=== PATIENT | female | born 1970 | race Caucasian/White ===

== ENCOUNTER 2019-12-25 23:32 | Observation (INO) | payer OTHER, SELFPAY ==
--- NOTE | ~2019-12-25 | XR_ITS ---
EXAMINATION: XR hand RT min 3V INDICATION: Right third finger pain and swelling TECHNIQUE: Three views of the right hand are obtained. COMPARISON: None available FINDINGS: There is diffuse soft tissue swelling of the third finger. No fracture, dislocation, or sub luxation is identified. No radiopaque foreign body is seen. Mild osteoarthritis is noted in several i nterphalangeal joints. IMPRESSION: 1. Soft tissue swelling of the right third finger without evidence of underlying osseous abnormality or radiopaque foreign body. Reviewed, dictated and finalized at location A. SIDE [employer]CHANIC IMPRESSION: 1. Soft tissue swelling of the right third finger without evidence of underlyin g osseous abnormality or radiopaque foreign body.
[2019-12-25 23:37] VITALS: BP 135/112; PULSE 121; RESP 20; TEMP 37.5; O2SAT 99
[2019-12-26] VITALS (9 sets, daily range): BP systolic 108–128; BP diastolic 58–78; PULSE 62–88; RESP 18–20; TEMP 36.1–37.2; O2SAT 94–98; BMI 25.2
--- NOTE | 2019-12-26 00:15 | ED.EXTPRO ---
HPI - Extremity Problem General Chief complaint: Extremity Problem,Nontraumatic Stated complaint: Swelling right middle finger Time Seen by Provider: 12/25/19 23:55 Source: patient Mode of arrival: ambulatory Limitations: no limitations History of Present Illness HPI Narrative: Patient is a 49-year-old female complaining of right middle finger swelling and pain, possible insect/spider bite, started 3 days ago. Patient once seen at another ER, [place], signed out AMA, supposed to have surgery tomorrow done by the hand surgeon, but patient states that the nurse was being unprofessional so she signed out AMA. Review of Systems Review of Systems: All systems reviewed & are unremarkable except as noted in HPI and below Constitutional: Constitutional: Denies body ache(s), Denies chills, Denies excessive sweating, Denies fatigue, Denies fever(s), Denies headache(s), Denies lethargy, Denies malaise, Denies weakness and Denies weight loss Eyes: Eyes: Denies blurry vision, Denies change in vision and Denies loss of vision ENT: Denies dizziness, Denies ear discharge, Denies headache(s), Denies lip swelling, Denies epistaxis, Denies nasal congestion, Denies neck pain, Denies throat swelling and Denies tongue swelling Cardiovascular: Cardiovascular: Denies chest pain, Denies chest pain at rest, Denies chest pain with activity, Denies diaphoresis, Denies rapid heart rate, Denies edema, Denies irregular heart rhythm, Denies lightheadedness, Denies palpitations, Denies dyspnea and Denies dyspnea on exertion Respiratory: Respiratory: Denies chest congestion, Denies cough, Denies hemoptysis, Denies dyspnea and Denies dyspnea on exertion Gastrointestinal: Gastrointestinal: Denies abdominal pain, Denies melena, Denies hematochezia, Denies diarrhea, Denies nausea, Denies vomiting and Denies hematemesis Musculoskeletal: Musculoskeletal: Denies abnormal gait, Denies deformity, Denies neck pain and Denies numbness Neurologic: Denies Abnormal speech present, Denies abnormal gait, Denies confusion, Denies dizziness, Denies headache(s), Denies focal weakness, Denies loss of vision, Denies numbness, Denies Other visual disturbances, Denies Sensory deficit (Neuro) and Denies weakness Psychiatric: Psychiatric: Denies confusion, Denies depression, Denies auditory hallucinations, Denies homicidal ideation and Denies suicidal ideation Endocrine: Endocrine: Denies cold intolerance, Denies excessive sweating, Denies fatigue, Denies heat intolerance and Denies palpitations Hematologic/Lymphatic: Hematologic/Lymphatic: Denies easy bleeding and Denies easy bruising Allergic/Immunologic: Allergic/Immunologic: Denies lip swelling, Denies throat swelling and Denies tongue swelling PMFSH Past Medical History Medical History (Updated 12/26/19 @ 01:36 by Alejandro Galvan MD) Anxiety Depression Surgical History Surgical History (Updated 01/07/19 @ 11:26 by Addie Hinkle CMA) History of appendectomy [place] teeth removed Family History Family History (Updated 05/27/16 @ 23:56 by DOCTOR UNKNOWN) Grandparent Hypertension, Onset Age: 70 Social History Social History Smoking status: Light tobacco smoker Second hand tobacco smoke exposure: No Smoking end date: 02/21/08 Alcohol intake: never Exam Const: General: cooperative, healthy appearing, comfortable, no acute distress, well developed, alert and awake; No confusion Orientation/consciousness: oriented to person, oriented to place, oriented to time, patient oriented x3 and No confusion Limitations: no limitations HENMT: Head: normal to inspection, normocephalic and atraumatic Ears: hearing grossly normal bilaterally, TM normal on the right and TM normal on the left General nose exam: Normal external nose present, Normal nares present and No nasal discharge present Face and sinus: normal facial exam Mouth: Yes Normal oral and palatal mucosa present, Yes lip normal, Yes tongue no
[2019-12-26] MEDS: CLINDAMYCIN 600 MG/NS 50 ML 600 MG/50 ML PIGGYBACK 100 MG IVPB ×4 (00:28→23:35)
[2019-12-26 00:44] LABS: Basophils Percent Auto 0.3 % (0.2-1.2); Eosinophils Absolute Auto 0.1 K/mm3 (0-0.3); Eosinophils Percent Auto 0.9 % (0-4.4); Hematocrit 35.3 % (37.0-47.0); Hemoglobin 11.6 g/dL (12.0-15.0); Immature Granulocyte Absolute 0.02 K/mm3 (0.00-0.031); Immature Granulocyte Percent A 0.3 % (0-0.5); Lymphocytes Absolute Auto 1.41 K/mm3 (0.9-3.2); Lymphocytes Percent Auto 19.1 % (18.3-44.2); Mean Corpuscular HGB Conc 32.9 g/dl (32-36); Mean Corpuscular Hemoglobin 28.1 pg (26-34); Mean Corpuscular Volume 85.5 fl (80-100); Mean Platelet Volume 9.2 fl (7.4-10.4); Monocytes Absolute Auto 0.6 K/mm3 (0.1-0.6); Monocytes Percent Auto 7.7 % (2.6-8.5); Neutrophils Absolute Auto 5.3 K/mm3 (1.3-6.7); Neutrophils Percent Auto 71.7 % (45.5-73.1); Platelet Count Result 204 k/mm3 (150-375); Red Blood Count 4.13 M/mm3 (4.2-5.4); Red Cell Distribution Width 14.2 % (11.5-14.5); White Blood Count 7.4 K/mm3 (4.5-10.0)
[2019-12-26 01:06] LABS: Anion Gap 9 mmol/L (8-16); Blood Urea Nitrogen 10 mg/dL (7-17); Calcium 8.6 mg/dL (8.4-10.2); Carbon Dioxide 24 mmol/L (22-30); Chloride 102 mmol/L (98-107); Estimated CRCL calculation 89 ml/min; Estimated Glomerular Filt Rate > 60; Glucose 127 mg/dL (65-105); Potassium 3.6 mmol/L (3.4-5.0); Sodium 135 mmol/L (137-145)
--- NOTE | 2019-12-26 02:35 | ADMGEN ---
This patient, Nu Bertrand, was admitted to 3 [facility] Surg Room 302-01. Patient/family oriented to hospital policies and general routines including ID bracelet, bed and alarms, visiting hours, pain management, procedures, bathroom and other care routines, personal items, smoking policy, room service/diet, and visiting hours. Information on how to activate the Rapid Response Team has been discussed. Patient/Family are encouraged to report perceived risks to care and to ask questions if they do not understand what they are told or what they should do.
[2019-12-26] MEDS: LACTATED RINGERS 1,000 ML 125 ML IV CONT (03:02)
--- NOTE | 2019-12-26 07:15 | WPDCN ---
Assessment and Plan Assessment and plan (1) Cellulitis of finger, right: Code(s): L03.011 - Cellulitis of right finger Status: Acute Assessment and Plan: She appears to have a right middle finger cellulitis. I see no evidence of flexor tenosynovitis. Further I see nothing to drain at this time. She states there has been significant improvement in the last 24 hours. As such let us continue elevation, IV antibiotics, monitoring. Will follow. Today we had a lengthy discussion about her options. Risks, benefits, alternatives of each. She would like proceed as above. HPI Data of Consult Date/Time: 12/26/19 07:15 Requesting Physician: DERIAN Rodriguez Primary Care Provider: Matt Stallings M.D. Consult Narrative Narrative: Nu Bertrand is a 49 year old female complaining of right middle finger swelling and pain, possible insect/spider bite, started 4 days ago. Patient once seen at another ER, [place], signed out AMA, supposed to have surgery tomorrow done by the hand surgeon, but patient states that the nurse was being unprofessional so she signed out AMA. She presented to the emergency room at [place]. It was admitted on IV antibiotics started. This morning when I saw her she states she is actually doing a lot better. No fevers or chills. No nausea vomiting. Her finger is moving better. Less discomfort less erythema. Left swelling. Review of Systems Review of Systems: All systems reviewed & are unremarkable except as noted in HPI and below PMFSH Past Medical History Medical History (Updated 12/26/19 @ 07:20 by Alin Pacheco MD) Anxiety Depression Surgical History Surgical History (Updated 01/07/19 @ 11:26 by Addie Hinkle CMA) History of appendectomy [place] teeth removed Family History Family History Grandparent Hypertension, Onset Age: 70 Social History Social History Years smoked: 36 Smoking status: Current every day smoker Tobacco type: cigarettes Second hand tobacco smoke exposure: No Smoking end date: 02/21/08 Alcohol intake: current Substance use: current Substance use type: marijuana Last use: 12/23/19 Spiritual care concerns: No Meds Home Medications and Allergies Home Medications Medication Instructions Recorded Confirmed Type apixaban [Eliquis] 2.5 mg PO DAILY 12/26/19 12/26/19 History aspirin 81 mg PO DAILY 12/26/19 12/26/19 History carvedilol 12.5 mg PO BID 12/26/19 12/26/19 History clonidine HCl 0.1 mg PO BID 12/26/19 12/26/19 History diclofenac sodium 75 mg PO BID 12/26/19 12/26/19 History duloxetine 30 mg PO BID 12/26/19 12/26/19 History hydroxyzine pamoate 50 mg PO Q4H PRN 12/26/19 12/26/19 History ondansetron HCl 8 mg PO Q8H PRN 12/26/19 12/26/19 History quetiapine 50 mg PO BID 12/26/19 12/26/19 History sulfamethoxazole-trimethoprim 1 tablet PO BID 12/26/19 12/26/19 History trazodone 50 mg PO DAILY 12/26/19 12/26/19 History Allergies Allergy/AdvReac Type Severity Reaction Status Date / Time No Known Allergies Allergy Verified 12/26/19 01:47 Vital Signs Vital Signs - 24 hr 12/25/19 23:37 12/26/19 02:07 12/26/19 02:30 Temperature 37.5 C 37.2 C Pulse Rate 121 H 88 87 Respiratory Rate 20 18 20 Blood Pressure 135/112 H 128/72 108/78 Pulse Oximetry 99 98 97 12/26/19 04:28 12/26/19 06:00 Temperature 36.2 C L Pulse Rate 78 Respiratory Rate 20 Blood Pressure 117/70 Pulse Oximetry 97 98 Exam Narrative: Exam Narrative: Right hand has erythema along the dorsum preparing the extending on the radial and ulnar aspect right middle finger around the PIP joint. She does not hold her finger in flexion. I am able to extend. No tenderness along the flexor tendon sheath and no true fusiform edema. I see no evidence of joint infection with no pain with joint motion. I see no purulence. No fluctuance. She does have libra
--- NOTE | 2019-12-26 10:35 | PM.IMHP ---
H&P: HPI History of Present Illness Date/Time: 12/26/19 10:35 Chief complaint: Right hand 3rd digit swelling, pain, redness Narrative: Date of Admission: 12/26/19 Date of Service: 12/26/19 1000 The supervising physician for this history and physical is Dr Holloway. Ms. Bertrand is a 49yo F with history of hypertension, coronary artery disease with history of MT in 2015 s/p one coronary stent, depression and anxiety with bipolar disorder, tobacco abuse who presented to the ED for evaluation of right middle finger swelling, redness, and pain that began 12/20/19 and had been worsening. She describes that prior to arrival, she was previously treated at [facility] two days ago where she left AMA prior to being admitted due to an unfavorable experience with staff, per the patient. She has already been evaluated by plastic surgery, Dr Pacheco, this morning. XR showed soft tissue swelling of right third finger without any osseous abnormalities. Vital signs are stable and routine lab work is grossly unremarkable aside from a normocytic anemia. She denies any other symptoms other than her finger swelling and the pain associated with such is improved. She is admitted to the hospitalist service for observation and management of right 3rd finger cellulitis. Review of Systems Review of Systems: Narrative: Right 3rd finger swelling has been worsening and started 6 days ago. She denies any drainage of the area. She denies fevers/chills at home, recent sick contacts or exposure to any known COVID positive persons. She denies chest pain, shortness of breath, or calf tenderness. She was nauseous yesterday without vomiting; nausea is resolved today. No abdominal pain, diarrhea or constipation. Twelve systems were reviewed with pertinent positives and negatives as per HPI. Except as documented, all other systems were reviewed and are negative. COUNTS INCLUDE 234 BEDS AT THE [facility] Past Medical History Medical History (Updated 12/26/19 @ 12:13 by Irais Benoit PA-C) Anxiety Bipolar disorder with depression Coronary artery disease Depression History of MT (myocardial infarction) 2014 s/p one coronary stent, done at [place]. She does not recall her process checker's name, with [facility] group. Hypertension Tobacco abuse Surgical History Surgical History History of appendectomy History of back surgery L4-L5 back fusion in 1997 S/P coronary artery stent placement 2015 at [place] with [facility] [place] teeth removed Family History Family History (Updated 12/26/19 @ 11:53 by Irais Benoit PA-C) Grandparent Hypertension, Onset Age: 70 Father Diabetes mellitus Mother Scleroderma Social History Social History (Updated 12/26/19 @ 11:56 by Irais Benoit PA-C) Social History: Ms. Bertrand lives at home in [place] with her brother, Kristian. 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 She is working on applying for disability. She denies alcohol use. She reports smoking half pack of cigarettes per day for the last 35 years. She reports occasional marijuana use by smoking and ingestion around once monthly. Her PCP is Dr Alexander. She does not have a surrogate decision maker and wishes to be Full Code Status. Years smoked: 35 Smoking status: Current every day smoker Tobacco type: cigarettes Second hand tobacco smoke exposure: No Smoking end date: 02/21/08 Alcohol intake: former Substance use: current Substance use type: marijuana Last use: 12/23/19 Living arrangements: with family Occupation/Education: unemployed Spiritual care concerns: No Meds Home Medications and Allergies Home Medications Medication Instructions Recorded Confirmed Type apixaban [Eliquis] 2.5 mg PO DAILY 12/26/19 12/26/19 History aspirin 81 mg PO DAILY 12/26/19 12/26/19 History carvedilol 12.5 mg PO BID 12/26/19
[2019-12-26] MEDS: cloNIDine HCL 0.1 MG TABLET PO ×2 (11:50→18:49)
[2019-12-26] MEDS: carvediloL 12.5 MG TABLET PO ×2 (11:51→20:25)
[2019-12-26] MEDS: APIXABAN 2.5 MG TABLET PO (11:51)
[2019-12-26] MEDS: QUEtiapine FUMARATE 25 MG TABLET 50 MG PO ×2 (11:51→18:49)
[2019-12-26] MEDS: ASPIRIN 81 MG ENTERIC TABLET PO (11:52)
[2019-12-26] MEDS: DULoxetine HCL 30 MG CAPSULE.DR PO ×2 (15:37→18:49)
[2019-12-26] MEDS: NICOTINE (*PBKC) 14 MG PATCH 1 PATCH TRANSDERM (15:37)
[2019-12-26] MEDS: ACETAMINOPHEN 325 MG TABLET 650 MG PO (18:50)
[2019-12-27 06:00] VITALS: BP 113/68; PULSE 60; RESP 20; TEMP 36.6; O2SAT 99
[2019-12-27 06:43] LABS: Basophils Percent Auto 0.5 % (0.2-1.2); Eosinophils Absolute Auto 0.1 K/mm3 (0-0.3); Eosinophils Percent Auto 2.3 % (0-4.4); Hematocrit 33.6 % (37.0-47.0); Hemoglobin 10.8 g/dL (12.0-15.0); Immature Granulocyte Absolute 0.02 K/mm3 (0.00-0.031); Immature Granulocyte Percent A 0.3 % (0-0.5); Lymphocytes Absolute Auto 2.49 K/mm3 (0.9-3.2); Lymphocytes Percent Auto 41.2 % (18.3-44.2); Mean Corpuscular HGB Conc 32.1 g/dl (32-36); Mean Corpuscular Hemoglobin 28.1 pg (26-34); Mean Corpuscular Volume 87.5 fl (80-100); Mean Platelet Volume 9.5 fl (7.4-10.4); Monocytes Absolute Auto 0.6 K/mm3 (0.1-0.6); Monocytes Percent Auto 9.6 % (2.6-8.5); Neutrophils Absolute Auto 2.8 K/mm3 (1.3-6.7); Neutrophils Percent Auto 46.1 % (45.5-73.1); Platelet Count Result 194 k/mm3 (150-375); Red Blood Count 3.84 M/mm3 (4.2-5.4); Red Cell Distribution Width 14.2 % (11.5-14.5)
[2019-12-27 06:56] LABS: Anion Gap 7 mmol/L (8-16); Blood Urea Nitrogen 16 mg/dL (7-17); Calcium 8.5 mg/dL (8.4-10.2); Carbon Dioxide 24 mmol/L (22-30); Chloride 109 mmol/L (98-107); Estimated CRCL calculation 78 ml/min; Estimated Glomerular Filt Rate > 60; Glucose 107 mg/dL (65-105); Potassium 3.9 mmol/L (3.4-5.0); Sodium 140 mmol/L (137-145)
[2019-12-27 08:00] VITALS: PULSE 60; RESP 20; O2SAT 99
[2019-12-27] MEDS: carvediloL 12.5 MG TABLET PO (09:27)
[2019-12-27] MEDS: QUEtiapine FUMARATE 25 MG TABLET 50 MG PO (09:27)
[2019-12-27] MEDS: DULoxetine HCL 30 MG CAPSULE.DR PO (09:28)
[2019-12-27] MEDS: APIXABAN 2.5 MG TABLET PO (09:28)
[2019-12-27] MEDS: ASPIRIN 81 MG ENTERIC TABLET PO (09:28)
[2019-12-27] MEDS: NICOTINE (*PBKC) 14 MG PATCH 1 PATCH TRANSDERM (09:28)
[2019-12-27] MEDS: cloNIDine HCL 0.1 MG TABLET PO (09:31)
[2019-12-27] MEDS: ACETAMINOPHEN 325 MG TABLET 650 MG PO (09:31)
[2019-12-27] MEDS: CLINDAMYCIN 600 MG/NS 50 ML 600 MG/50 ML PIGGYBACK 100 MG IVPB (09:39)
--- NOTE | 2019-12-27 13:23 | PM.DS ---
DS: Admitting Diagnosis Admitting Diagnosis Admitting Diagnosis: Right hand 3rd digit swelling, pain, redness DS: Discharge Diagnosis Discharge Diagnosis (1) Cellulitis of finger, right: Code(s): L03.011 - Cellulitis of right finger Status: Acute Assessment and Plan: Date of Admission 12/26/19 Date of Discharge/DOS 12/27/19 Ms. Bertrand is a 49yo F with history of bipolar disorder with depression and anxiety, hypertension, coronary artery disease and tobacco abuse who presented to the ED for evaluation of a swollen, painful right middle finger. She was previously evaluated at [facility] where they advised her to be admitted for IV antibiotics however she left against medical advice from their facility and presented there. She was treated with 2 days of IV clindamycin and a dose of IV vancomycin. She was evaluated by plastic surgery, Dr Pacheco, who advised there were no areas of fluctuance that would be able to be drained, no evidence of flexor tenosynovitis thus no surgical intervention was necessary at this time. XR shows soft tissue swelling without osseous abnormality. Her cellulitis was clinically improved with the therapy outlined above and she was hemodynamically stable for discharge 12/27/19 with oral antibiotics to complete the course and instructions to follow up with her PCP. (2) Hypertension: Code(s): I10 - Essential (primary) hypertension Status: Chronic Assessment and Plan: Blood pressures stable maintained on her home carvedilol and clonidine. (3) Bipolar disorder with depression: Code(s): F31.9 - Bipolar disorder, unspecified Status: Chronic Assessment and Plan: Stable. Continue her home medications with Cymbalta, Seroquel. (4) Coronary artery disease: Code(s): I25.10 - Atherosclerotic heart disease of [place] coronary artery without angina pectoris Status: Chronic Assessment and Plan: s/p RI 5 years ago. Stable, no chest pain. Continue her home ASA and Eliquis. (5) Tobacco abuse: Code(s): Z72.0 - Tobacco use Status: Chronic Assessment and Plan: Smoking cessation advised. Nicotine patch offered. DS: Summary Time Spent with Patient Time attestation: Total time spent providing and/or coordinating discharge services: 40 mintues Exam Narrative: Exam Narrative: General: Well-developed, well-nourished female resting comfortably supine in bed in no acute distress, anxious. HEENT:Normocephalic, atraumatic, EOMI, PERRL, oral mucosa moist, poor dentition with missing and cracked teeth. Neck: Supple. Chest: Clear to auscultation throughout all lung ruiz. Respirations are even and nonlabored. Tolerating room air. Heart: Heart rate and rhythm regular with S1 and S2. No murmur, rub, or gallop appreciated. Abdomen: Soft, nontender, nondistended with present bowel sounds. Skin: Warm, dry. No rashes or lesions noted aside from R 3rd finger. Extremities: Peripheral pulses intact. Right 3rd finger is edematous, erythematous but improved from yesterday. Active range of motion of all right fingers intact. Neurologic: Alert and oriented. No focal neurologic deficits noted. Speech is clear. Psychiatric: Anxious but pleasant and cooperative. DS: Data Data Completed and Pending Labs on day of discharge: Last Vital Signs Temp 98.4 F 12/27/19 14:00 Pulse 64 12/27/19 14:00 Resp 18 12/27/19 14:00 BP 114/59 L 12/27/19 14:00 Pulse Ox 98 12/27/19 14:00 ITS Impressions Hand X-Ray 12/26/19 07:16 IMPRESSION: 1. Soft tissue swelling of the right third finger without evidence of underlying osseous abnormality or radiopaque foreign body. Laboratory Tests 12/27/19 06:06
[2019-12-27 14:00] VITALS: BP 114/59; PULSE 64; RESP 18; TEMP 36.9; O2SAT 98
--- NOTE | 2019-12-27 14:54 | WPDPN ---
Progress Note: A&P Assessment and Plan (1) Cellulitis of finger, right: Code(s): L03.011 - Cellulitis of right finger Status: Acute Assessment and Plan: She has had some improvement right middle finger. Continue work on range of motion antibiotics. Follow up with me. (2) Hypertension: Code(s): I10 - Essential (primary) hypertension Status: Chronic (3) Bipolar disorder with depression: Code(s): F31.9 - Bipolar disorder, unspecified Status: Chronic (4) Anxiety: Code(s): F41.9 - Anxiety disorder, unspecified Status: Acute (5) Coronary artery disease: Code(s): I25.10 - Atherosclerotic heart disease of [place] coronary artery without angina pectoris Status: Chronic (6) Tobacco abuse: Code(s): Z72.0 - Tobacco use Status: Chronic Review of Systems Review of Systems: All systems reviewed & are unremarkable except as noted in HPI and below Exam Narrative: Exam Narrative: Right middle finger with decreasing erythema. No kaz purulence or fluctuance. Improving range of motion. She still has significant erythema of the digit. No evidence of flexor tenosynovitis. Objective Data Vital Signs Vital Signs: Vital Signs - 24 hr 12/26/19 16:00 12/26/19 20:25 12/26/19 22:00 Temperature 36.1 C L 36.7 C Pulse Rate 62 66 63 Respiratory Rate 20 20 Blood Pressure 128/67 113/58 L Pulse Oximetry 95 94 12/27/19 06:00 12/27/19 08:00 Temperature 36.6 C Pulse Rate 60 60 Respiratory Rate 20 20 Blood Pressure 113/68 Pulse Oximetry 99 99 Intake/Output Intake/Output: Intake & Output 12/24/19 12/25/19 12/26/19 12/27/19 23:59 23:59 23:59 23:59 Intake Total 1345 780 Output Total 350 Balance 995 780 Meds/Results Medications: Active Medications Generic Name Dose Route Start Last Admin Trade Name Freq PRN Reason Stop Dose Admin Acetaminophen 650 mg 12/26/19 08:04 12/27/19 09:31 Acetaminophen 325 Mg Tablet PO 650 mg Q4H PRN Administration Pain or Fever Apixaban 2.5 mg 12/26/19 09:00 12/27/19 09:28 Apixaban 2.5 Mg Tablet PO 2.5 mg DAILY CHUCHO Administration Aspirin 81 mg 12/26/19 09:00 12/27/19 09:28 Aspirin 81 Mg Enteric Tablet PO 81 mg DAILY CHUCHO Administration Carvedilol 12.5 mg 12/26/19 09:00 12/27/19 09:27 Carvedilol 12.5 Mg Tablet PO 12.5 mg Q12HR CHUCHO Administration Clonidine HCl 0.1 mg 12/26/19 09:00 12/27/19 09:31 Clonidine Hcl 0.1 Mg Tablet PO 0.1 mg BID CHUCHO Administration Duloxetine HCl 30 mg 12/28/19 09:00 Duloxetine Hcl 30 Mg Capsule.Dr PO DAILY CHUCHO Vancomycin HCl 1,000 mg in 250 mls @ 250 mls/hr 12/27/19 12:00 12/27/19 13:33 Vancomycin 1,000 Mg/D5w 250 Ml IVPB 250 mls/hr Q18H CHUCHO Administration Nicotine 1 patch 12/26/19 10:45 12/27/19 09:28 Nicotine (*Pbkc) 14 Mg Patch TRANSDERM 1 patch QAM CHUCHO Administration Ondansetron HCl 4 mg 12/26/19 08:04 Ondansetron Inj 4 Mg/2 Ml Vial IV PUSH Q6H PRN Nausea And Vomiting Quetiapine Fumarate 50 mg 12/26/19 09:00 12/27/19 09:27 Quetiapine Fumarate 25 Mg Tablet PO 50 mg BID CHUCHO Administration Radiology Results: ITS Impressions Hand X-Ray 12/26/19 07:16 IMPRESSION: 1. Soft tissue swelling of the right third finger without evidence of underlying osseous abnormality or radiopaque foreign body. Labs Labs: Laboratory Results - last 24 hr 12/27/19 12/27/19 06:06 06:06 WBC 6.0 RBC 3.84 L Hgb 10.8 L Hct 33.6 L MCV 87.5 MCH 28.1 MCHC 32.1 RDW 14.2 Plt Count 194 MPV 9.5 Immature Gran % (Auto) 0.3 Neut % (Auto) 46.1 Lymph % (Auto) 41.2 [place] % (Auto) 9.6 H Eos % (Auto) 2.3 Baso % (Auto) 0.5 Lymph # (Auto) 2.49 [place] # (Auto) 0.6 Eos # (Auto) 0.1 Baso # (Auto) 0.0 Abs Immat Gran (auto) 0.02 Absolute Neuts (auto) 2.8 Absolute Nucleated RBC 0.0 Nucleated RBC % 0.0 Sodium 140
--- NOTE | 2019-12-27 17:27 | PC.NURSE ---
SENT HOME HOME MEDS WITH PT.
== END 2019-12-27 17:20 | disposition home or self-care (01) ==
LOC: ANHED 12-26 01:47 → ANH3MEDSUR 12-26 02:10
PROVIDERS: Physician Assistant; Admitting Provider Student in an Organized Health Care Education/Training Program; Emergency Provider Emergency Medicine; Visit Provider Hospitalist
DX: L03.011 Cellulitis of right finger (principal); I10 Essential (primary) hypertension; F31.9 Bipolar disorder, unspecified; I25.10 Atherosclerotic heart disease of native coronary artery without angina pectoris; F17.210 Nicotine dependence, cigarettes, uncomplicated; I25.2 Old myocardial infarction; F41.9 Anxiety disorder, unspecified; Z79.01 Long term (current) use of anticoagulants; Z79.899 Other long term (current) drug therapy; Z95.5 Presence of coronary angioplasty implant and graft; Z98.1 Arthrodesis status
CPT/HCPCS: 36415; 73130; 80048; 83735; 85025; 96365; 96366; 96374; 96375; 99285; A9270; G0378; G0379; J3370; J7120

== ENCOUNTER 2020-02-19 11:01 | Emergency (ER) | payer OTHER, SELFPAY ==
--- NOTE | ~2020-02-19 | XR_ITS ---
XR finger 3rd RT min 2V DATE: 02/19/2020 11:23 INDICATION: Pain and swelling of right third finger TECHNIQUE: 4 views COMPARISON: 12/26/2019 right hand FINDINGS: There is mild soft tissue swelling centered at the proximal interphalangeal joint. The soft tissue swelling is significantly diminished however since 12/26/2019. No fracture or dislocation, periosteal reaction or bone destruction is evident. No radiopaque foreign body or subcutaneous emphysema. Interphalangeal and metacarpophalangeal joint spaces of the third di git are preserved. IMPRESSION: Diminished soft tissue swelling since 12/26/2019 Reviewed, dictated and finalized at location A. [employer]
--- NOTE | 2020-02-19 11:03 | ED.GENADULT ---
HPI - General Adult General Chief complaint: Wound/Laceration Stated complaint: INFECTED FINGER Time Seen by Provider: 02/19/20 11:02 Source: patient Mode of arrival: ambulatory Limitations: no limitations History of Present Illness HPI narrative: 49-year-old female patient presents to the [facility] with complaints of her right middle finger infection and pain. Patient was hospitalized at [facility] on 12/26/2019 and discharged on 12/27/2019 for cellulitis in the right middle finger. Patient did have a plastic surgery consult at that time and there was no surgical intervention needed. Patient did get admitted for IV antibiotics and sent home on clindamycin. Patient states that she did get 2 refills from her primary doctor for the clindamycin and just finished her last one about 4 days ago. Patient states she is needing another refill of the clindamycin again to hold her over until she sees Dr. Stallings next week who is a Ortho hand doctor. Patient states that the antibiotic helps with the pain. Denies taking anything else for the pain. Patient denies any fevers, body aches or chills. Related Data Home Medications Medication Instructions Recorded Confirmed Eliquis 2.5 mg PO DAILY 12/26/19 12/26/19 aspirin 81 mg PO DAILY 12/26/19 12/26/19 carvedilol 12.5 mg PO BID 12/26/19 12/26/19 clonidine HCl 0.1 mg PO BID 12/26/19 12/26/19 diclofenac sodium 75 mg PO BID 12/26/19 12/26/19 duloxetine 30 mg PO BID 12/26/19 12/26/19 hydroxyzine pamoate 50 mg PO Q4H PRN 12/26/19 12/26/19 ondansetron HCl 8 mg PO Q8H PRN 12/26/19 12/26/19 quetiapine 50 mg PO BID 12/26/19 12/26/19 sulfamethoxazole-trimethoprim 1 tablet PO BID 12/26/19 12/26/19 trazodone 50 mg PO DAILY 12/26/19 12/26/19 atorvastatin 02/19/20 carbamazepine 02/19/20 gabapentin 02/19/20 losartan-hydrochlorothiazide tablet 02/19/20 Allergies Allergy/AdvReac Type Severity Reaction Status Date / Time No Known Allergies Allergy Verified 12/26/19 01:47 Review of Systems Review of Systems: Narrative: CONSTITUTIONAL: Denies fever, chills, or sweats. EYES: Denies visual changes, redness, or discharge. ENT: Denies rhinorrhea, congestion, sore throat, or otalgia. CARDIOVASCULAR: Denies chest pain, palpitations, or edema. RESPIRATORY: Denies cough or dyspnea. GASTROINTESTINAL: Denies abdominal pain, nausea, vomiting, or diarrhea. GENITOURINARY: Denies dysuria or hematuria. SKIN: Denies rash or itching. MUSCULOSKELETAL: Denies back pain, joint pain, or myalgia. Positive right middle finger pain. NEUROLOGIC: Denies headache, numbness, or weakness. PSYCHIATRIC: Denies anxiety or depression. [facility] Past Medical History Medical History Anxiety Bipolar disorder with depression Coronary artery disease Depression History of AL (myocardial infarction) 2014 s/p one coronary stent, done at [facility]. She does not recall her hourly caregiver's name, with [facility] group. Hypertension Tobacco abuse Surgical History Surgical History History of appendectomy History of back surgery L4-L5 back fusion in 1997 S/P coronary artery stent placement 2014 at [facility] with [facility] [place] teeth removed Family History Family History Grandparent Hypertension, Onset Age: 70 Father Diabetes mellitus Mother Scleroderma Social History Social History Social History: Ms. Bertrand lives at home in [place] with her brother, Kristian. 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 She is working on applying for disability. She denies alcohol use. She reports smoking half pack of cigarettes per day for the last 35 years. She reports occasional marijuana use by smoking and ingestion around once monthly. Her PCP is Dr Ramirez
[2020-02-19 11:07] VITALS: BP 153/96; PULSE 101; RESP 20; TEMP 36.5; O2SAT 100
[2020-02-19 11:12] VITALS: BP 153/96; PULSE 101; RESP 20; TEMP 36.5; O2SAT 100
== END 2020-02-19 11:42 | disposition home or self-care (01) ==
PROVIDERS: Emergency Provider Nurse Practitioner Family; PCP Internal Medicine
DX: M79.644 Pain in right finger(s) (principal); F17.210 Nicotine dependence, cigarettes, uncomplicated; I25.10 Atherosclerotic heart disease of native coronary artery without angina pectoris; I25.2 Old myocardial infarction; Z95.5 Presence of coronary angioplasty implant and graft; I10 Essential (primary) hypertension; F31.9 Bipolar disorder, unspecified
CPT/HCPCS: 73140; 99213; G0463